=== PATIENT | female | born 1985 | race Caucasian/White ===

== ENCOUNTER 2025-09-18 23:25 | Emergency (ER) | payer SELFPAY ==
--- OUTSIDE RECORDS SUMMARY | 2025-01-10 04:30 | XMS_ITS ---
Author Organization [facility] Serv[facility] es Address [address] [place] [address] Care Team Providers Care Retail Warehouse Supervisor Name Role Phone Miguel Angel Madrigal Primary Care Provider Farfan Shea Unavailable [phone] Anny Martines Unavailable [phone] REASON FOR VISIT PROPHY SCHED FILLING Encounters Encounter Location Date Provider Diagnosis [facility] [address] [place] [address] 01/10/2025 Annyshawn Martines Acute gingivitis, plaque induced K05.00 Assessments Encounter Date Diagnosis (ICD Code) Assessment Notes Treatment Notes Treatment Clinical Notes Section Notes 01/10/2025 Acute gingivitis, plaque induced (ICD-10 - K05.00) Plan Of Treatment No Information Progress Notes * ARTURO VASQUEZOB: 7 (40 yo F)Acc No.[id number]:01/10/2025 Patient:?PEDROHOLGERZAYDA :?Anny MartinesDOB:1985???Age:39 Y???Sex: FemaleDate:01/10/2025Phone:[phone]:601 1/[address] [id number]:Miguel Angel Madrigal Subjective: * Chief Complaints: * P ROPHY SCHED FILLING Objective: * Dental Examination/Plan : * Tooth / Surface Status Description Provider Date TPPROPHYLAXIS - ANCIHON3701/10/2025 Assessment: * Assessment: 1.?Acute gingivitis, plaque induced - K05.00 (Primary)??? Billing Information: * Procedure Codes: * Electronic signature of Anny Martines on 09/19/2025 at 12:35 AM ESTSign off status: Pending * Provider: Denny Martines Date: 0 01/10/2025 Generated for Printing/Faxing/eTransmitting on:?09/19/2025 12:35 AM EST
--- OUTSIDE RECORDS SUMMARY | 2025-05-11 03:30 | XMS_ITS ---
Author Organization [facility] Servic es Address [address] [place] [address] Care Team Providers Care Jeep Driver Name Role Phone Miguel Agnel Madrigal Primary Care Provider [phone] Shea Farfan Unavailable [phone] Rachel Patino Unavailable [phone] REASON FOR VISIT DEMETRIUS from Shea Encounters Encounter Location Date Provider Diagnosis [facility] [address] [place] [address] 05/11/2025 Rachel Patino Plan Of Treatment No Information Progress Notes * ARTURO VASQUEZOB: 7 (40 yo F)Acc No.[id number]:05/11/2025 Behavioral Health Patient: ZAYDA CREWS :?Rachel PatinoDOB:1985???Age:40 Y???Sex: FemaleDate:05/11/2025Phone:[phone]:601 /2 [address] [place] [id number]:Miguel Angel Madrigal Subjective: * Chief Complaints: * T OC from Shea Billing Information: * Procedure Codes: * Electronic signature of ADALBERTO Bradley on 09/19/2025 at 12:36 AM EST Sign off status: Pending * Provider: Linn Patino Date: 0 05/11/2025 Generated for Printing/Faxing/eTransmitting on:?09/19/2025 12:36 AM EST
--- OUTSIDE RECORDS SUMMARY | 2025-05-30 11:00 | XMS_ITS ---
Author Organization [facility] [employer] es Address [address] [place] [address] Care Team Providers Care Assistant Director Name Role Phone Miguel Angel Madrigal Primary Care Provider Naheed Shea Unavailable [phone] Rachel Patino Unavailable [phone] REASON FOR VISIT Pt is a 40 year old female, DEMETRIUS from [facility], last seen August 2024 Encounters Encounter Location Date Provider Diagnosis [facility] [address] [place] [address] 05/30/2025 Rachel Patino Plan Of Treatment No Information Progress Notes * ARTURO VASQUEZOB: 7 (40 yo F)Acc No.[id number]:05/30/2025 Behavioral Health Patient: ZAYDA CREWS :?Rachel PatinoDOB:1985???Age:40 Y???Sex: FemaleDate:05/30/2025Phone:[phone]:601 1/[address]STR[place], [id number]:Miguel Angel Madrigal Subjective: * Chief Complaints: * P t is a 40 year old female, DEMETRIUS from [facility], last seen August 2024 Billing Information: * Procedure Codes: * Electronic signature of ADALBERTO Bradley on 09/19/2025 at 12:36 AM EST Sign off status: Pending * Provider: Linn Patino Date: 0 05/30/2025 Generated for Printing/Faxing/eTransmitting on:?09/19/2025 12:36 AM EST
[2025-09-18 23:39] VITALS: BP 130/83; PULSE 83; TEMP 37.1; O2SAT 99; BMI 28.9
[2025-09-19] MEDS: LIDOCAINE HCL 1% 100 MG/10 ML MDV INJ (00:15)
[2025-09-19 00:27] LABS: Hematocrit 35.5 % (36.0-48.0); Hemoglobin 11.7 g/dL (12.0-16.0); Immature Granulocytes Abs Auto 0.01 10^3/uL (0.00-0.03); Immature Granulocytes Pct Auto 0.2 % (0.0-0.5); Lymphocytes Absolute Auto 1.9 10^3/uL (1.2-3.8); Mean Corpuscular HGB Conc 33.0 g/dL (29.9-35.2); Mean Corpuscular Hemoglobin 28.5 pg (26.7-34.0); Mean Corpuscular Volume 86.6 fL (81.0-99.0); Platelet Count 165 10^3/uL (150-450); Red Blood Count 4.10 10^6/uL (4.20-5.40); White Blood Count 5.0 10^3/uL (4.0-11.0)
--- OUTSIDE RECORDS SUMMARY | 2025-09-19 00:36 | XMS_ITS | Patient Health Record ---
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 Tito Call Unavailable [phone] Pamela Elizondo Unavailable [phone] Carolina Syed Unavailable [phone] Ori Gutierrez Unavailable [phone] Anny Martines Unavailable [phone] Linda Ibanez Unavailable [phone] Rachel Patino Unavailable [phone] Gin Gonzalez Unavailable [phone] Allergies No Known Allergies Results Component Value Reference Range Notes US breast RT limited Reviewed date:10/21/2024 08:59:22 PM Interpretation: Performing Lab: Notes/Report: [facility] Main [address] [address] Ultrasound Report Signed Patient: Janine Montgomery MR#: [id number] : 1985 Acct:[id number] Age/Sex: 39 / F ADM Date: 10/21/24 Loc: [place] Room: Type: [facility] Attending Dr: JESUS Fitzgerald APRNC Ordering Provider: Carolina Ring APRN, NP-C Date of Service: 10/21/24 US/US breast RT limited: Breast lump in female Copies to: Carolina Ring APRN, NP-C CLINICAL DATA: Bilateral MAMMOGRAMS - FULL FIELD DIGITAL/TARGETED RIGHT BREAST ULTRASOUND AT 12:00 Craniocaudal and mediolateral oblique views of the both were obtained using low- dose digital technique. Comparison is made to prior studies from [facility]. Heterogeneously dense breast tissue There are no dominant masses, typically malignant calcifications or architectural distortion. Ultrasound to the side concerns o'clock demonstrates an echogenic ridge of tissue which likely corresponds to the patient's palpable abnormality. There are few scattered cysts near the site of palpable abnormality which are incidentally noted. US/US breast RT limited IMPRESSION: NO MAMMOGRAPHIC EVIDENCE OF MALIGNANCY. ROUTINE FOLLOW-UP IS RECOMMENDED IN ONE YEAR. RESULT CODE: 2 Benign Findings(s) DENSITY CODE: 3 (approximately 51-75% glandular) FOLLOW UP: 1YR The false-negative rate of mammography is approximately 10-percent. Management of a palpable abnormality must be based on clinical grounds. Impression dictated by: Victoriano Bolton M.D.10/21/2024 4:21 PM Dictation Location: [facility] Tech: Aleidaeugenia Beckford Transcribed By: FAUSTINA 10/21/24 1621 Dictated By: Victoriano Bolton MD 10/21/24 1620 Signed By: <Electronically signed by Victoriano Bolton MD in OV> 10/21/24 1621 MM diagnostic mammo BI w/CAD Reviewed date:10/21/2024 08:59:22 PM Interpretation: Performing Lab: Notes/Report: [facility] Main [place] [address] [place] [address] Mammography Report Signed Patient: Janine Montgomery MR#: [id number] : 1985 Acct:[id number] Age/Sex: 39 / F ADM Date: 10/21/24 Loc: [place] Room: Type: [facility] Attending Dr: BRYNN Fitzgerald APRN Copies to: Carolina Ring APRN, NP-C Jennifer Christine Richardson Ordering Provider: Carolina Ring APRN, NP-C Date of Service: 10/21/24 MM/MM diagnostic mammo BI w/CAD: Breast lump in female CLINICAL DATA: Palpable abnormality Bilateral MAMMOGRAMS - FULL FIELD DIGITAL/TARGETED RIGHT BREAST ULTRASOUND AT 12:00 Craniocaudal and mediolateral oblique views of the both were obtained using low- dose digital technique. Comparison is made to prior studies from [facility]. Heterogeneously dense breast tissue There are no dominant masses, typically malignant calcifications or architectural distortion. Ultrasound to the side concerns o'clock demonstrates an echogenic ridge of tissue which likely corresponds to the patient's palpable abnormality. There are few scattered cysts near the site of palpable abnormality which are incidentally noted. MM/MM diagnostic mammo BI w/CAD IMPRESSION: NO MAMMOGRAPHIC EVIDENCE OF MALIGNANCY. ROUTINE FOLLOW-UP IS RECOMMENDED IN ONE YEAR. RESULT CODE: 2 Benign Findings(s) DENSITY CODE: 3 (approximately 51-75% glandular) FOLLOW UP: 1YR The false-negative rate of mammography is approximately 10-percent. Management of a palpable abnormality must be based on clinical grounds. Impression dictated by: Victoriano Bolton M.D.10/21/2024 3:34 PM Dictation Location: [facility] Transcribed By: [facility] 10/21/24 1534 Dictated By: Victoriano Bolton MD 10/21/24 1458 Signed By: <Electronically signed by Victoriano Bolton MD in OV> 10/21/24 1534 Rapid COVID-19 Reviewed date:04/06/2025 03:36:44 PM Interpretation:negative Performing Lab: Notes/Report: negative Results negative Strep Test [facility] Reviewed date:04/06/2025 03:36:09 PM Interpretation:negative Performing Lab: Notes/Report: negativeResultnegativeStrep Test [facility] Reviewed date:11/25/2024 01:44:56 PM Interpretation:negative Performing Lab: Notes/Report: negativeResultnegativeRapid COVID-19 Reviewed date:11/15/2024 12:14:50 PM Interpretation:Neg Performing Lab: Notes/Report: NegResultsNegRapid Flu Test Reviewed date:11/15/2024 12:14:34 PM Interpretation:Flu B Performing Lab: Notes/Report: Flu BResultFlu B Reason For Referral No Information Medications Medication SIG (Take, Route, Frequency, Duration) Notes Start Date End Date Status lamoTRIgine 150 MG Tablet 1 tablet Orally Once a day; Duration: 30 days ActiveLosartan Potassium 100 MG Tablet1 tablet Orally Once a day; Duration: 30 daysActiveVenlafaxine HCl ER 150 MG Capsule Extended Release 24 Hour1 capsule daily; Duration: 7 daysActiveOndansetron HCl 8 MG Tablet 1 tablet Orally Once a day; Duration: 30 days As needed nausea 01/13/2025tiveMetoclopramide HCl 5 MG Tablet 1 tablet (can redose for effect after 30 minutes) Orally 3 times a day; Duration: 15 days As needed 03/09/2025tiveclonazePAM 0.5 MG Tablet 1 tablet Orally twice daily; Duration: 30 days As needed 5ActiveVyvanse 70 MG Capsule1 capsule in the morning Orally Once a day; Duration: 30 days03/24/2025tivetraZODone HCl 50 MG Tablet1 tablet at bedtime as needed Orally Once a day01/22/2024ctiveVitamin D3 1.25 MG (24762 UT) Capsule TAKE 1 CAPSULE BY MOUTH Orally weekly; Duration: 90 daysActiveAlbuterol Sulfate HFA 108 (90 Base) MCG/ACT Aerosol Solution1 puff as needed Inhalation every 4 hrs; Duration: 10 days11/22/2024tiveQUEtiapine Fumarate 25 MG Tablet1-2 tabs at bedtime for anxiety Orally Once a day; Duration: 30 days10/07/2024tive cloNIDine HCl 0.2 MG Tablet1 tablet Orally Once a day; Duration: 30 days 10/13/2024tive Immunizations Vaccine Route Administration Date Status Comme nts AFLURIA IM Intramuscular 08/13/2024 Administered Social History Tobacco Use: Social History Observation Description Date Details (start date - stop date) Never Smoker NA - NA Social History GeneralSocial InfoQuestionAnswerNotesTransition of Care:ER/UC/hospital since last office visit?NoSpecialist seen since last office visit?NoSubstance abuse/mental health issues of patient/familyPatient -DeniesAbility to understand healthcare/treatmentPatient:GoodSexual Hx:Had sex in the last 12 months (vaginal, oral, or anal)?Yes? withMen only? Use protection?No? Prevention Strategies discussed:CondomsHave you ever had an STD?NoSocial/Support Concerns: Patient:NoBehaviors affecting healthPoor/Risky Behaviors:Denies-Communication Barrier:Language Barrier?:NoDrug/Alcohol:Social InfoQuestionAnswerNotesAUDIT-C (Standard)Did you have a drink containing alcohol in the past year?Yes? How often did you have a drink containing alcohol in the past year?Monthly or less (1 point)? How many drinks did you have on a typical day when you were drinking in the past year?3 or 4 drinks (1 point)? How often did you have six or more drinks on one occasion in the past year?Less than monthly (1 point)Points3 InterpretationPositiveTobacco Use:Social InfoQuestionAnswerNotesTobacco Control (Standard)Tobacco use:Nonsmoker Problems Problem Type SNOMED Code ICD Code Onset Dates Problem Status W/U Status Risk Notes Problem Overweight (082200530) Overweight (E66.3) ActiveconfirmedProblemVitamin D deficiency (43769964)Vitamin D deficiency (E55.9)ActiveconfirmedProblemMorbid obesity (862375636)Morbid obesity (E66.01) ActiveconfirmedProblemHyperthyroidism (07972229)Hyperthyroidism (E05.90)Active confirmedProblemChronic pain (16277257)Other chronic pain (G89.29)Active confirmedProblemMood disorder (45304441)Mood disorder (F39)Activeconfirmed ProblemChronic fatigue syndrome (23635931)Chronic fatigue (R53.82)Active confirmedProblemAttention deficit hyperactivity disorder (137975494)ADHD (attention deficit hyperactivity disorder), combined type (F90.2)Activeconfirmed ProblemEssential hypertension (81142599)Hypertension, unspecified type (I10) ActiveconfirmedProblemBody mass index 30.00 to 34.99 (809688876307087)BMI 31.0- 31.9,adult (Z68.31)ActiveconfirmedProblemGeneralized anxiety disorder (62383218) Generalized anxiety disorder (F41.1)Activeconfirmed Vital Signs Heart Rate 82 /min 04/06/2025 Lrtffealbch04 degrees Mckyappsdl42/02/2025Respiratory Rate20 /min04/06/2025 Wxxclpej784 %04/06/2025lood pressure rbdcstxpa66 mm Hg04/06/20251584Kyiqck26 in 04/06/2025lood pressure leoamvuu461 mm Hg04/06/20257199Qwktqu021 lbs04/06/2025MI 28.16 kg/m207/11/2024 Encounters Encounter Location Date Provider Diagnosis [facility] [address] [place] [address] 10/07/2024 [facility] [place] [address]/05/2025 Shea CoxGeneralized anxiety disorder F41.1[facility] [address] [place] [address]/[facility] [address] [place] [address]/hristy CoxADHD (attention deficit hyperactivity disorder), combined type F90.2[facility] [address] [place] [address]/hristy CoxADHD (attention deficit hyperactivity disorder), combined type F90.2 and Generalized anxiety disorder F41.1[facility] [address] [place] [address] 12/27/2024aron MartinezHypertension, unspecified type [address] [facility] [address] [place] [address]/[facility] [place] [address]/Ori Gutierrez [facility] [address] [place] [address]/11/2024 Shea CoxADHD (attention deficit hyperactivity disorder), combined type F90.2 [facility] [address] [place] [address]/04/2025 Shea CoxGeneralized anxiety disorder F41.1[facility] [address] [place] [address]/aron MartinezHypertension, unspecified type H27[facility] [address] [place] [address]/hristy CoxGeneralized anxiety disorder F41.1[facility] [address] [place] [address]/5Christy CoxADHD (attention deficit hyperactivity disorder), combined type F90.2[facility] [address] [place] [address]/5Aaron Rohan Overweight E66.3[facility] [address] [place] [address]/5Christy CoxGeneralized anxiety disorder F41.1[facility] [address] [place] [address]/5Christy CoxMood disorder Y26[facility] [address] [place] [address] 5Alexa zzzMurrayBreast lump in female N63.0[facility] [place] [address]/aron Dilipuejulia B J10.1[facility] [place] [address]/5Alexa zzzMurray Bacterial conjunctivitis H10.9 ; Sore throat J02.9 and Skin rash R21[facility] [address] [facility] [place] [address]/09/2025Stxin guptaBreaultEncounter for nonprocreative screening for genetic disease carrier status Z13.71 and Encounter for nonprocreative genetic counseling Z71.83[facility] [place] [address]/aron RohanPain, joint, knee, right M25.561 ; Pain in right hip M25.551 ; Other chronic pain G89.29 and Pain in left hip M25.552[facility] [address] [place] [address]/11/2024Hannabeatriz SchoenAcute left otitis media H66.92 and Sore throat J02.9[facility] [place] [address]/aron MartinezOverweight E66.3 ; Pain, joint, knee, right M25.561 and Acute dehydration E86.0[facility] [address] [place] [address]/5Alexa zzzMurrayAcute nonintractable headache, unspecified headache type R51.9[facility] [place] [address]/5Christy CoxGeneralized anxiety disorder F41.1 and ADHD (attention deficit hyperactivity disorder), combined typ e F90.2 Assessments Encounter Date Diagnosis (ICD Code) Assessment Notes Treatment Notes Treatment Clinical Notes Section Notes 10/07/2024 Generalized anxiety disorder (IC D-10 - F41.1) Recommended treatment is: FDA approved medication for this age group include Selective Serotonin Reuptake Inhibitors (SSRI) and Selective Norepinephrine Reuptake Inhibitors (SNRI). . Selective serotonin reuptake inhibitors can cause nausea, headache, upset stomach, diarrhea, constipation, anxiety, irritability, and sexual dysfunction. . Please monitor for worsening of symptoms, especially suicidal ideations or morbid thoughts, and call office and or go to the emergency department immediately. Pt does not endorse exhibiting symptoms aligning with aliya. . The patient verbalizes understanding with all questions answered thoroughly and is in agreement with treatment plan. . Continue current treatment plan with addition of clonazepam. Patient/Guardian will call sooner if symptoms worsen. Patient understands to go to ER if needed if symptoms become severe. Crisis Intervention plan was discussed and agreed upon. Patient/Guardian will call 911 in case of emergency. Emergency contact information was provided to the patient/guardian. 10/08/2024reast lump in female (ICD-10 - N63.0)Will get imaging today, will contact patient with results and next steps. Patient verbalized understanding, in agreement with plan.11/25/2024acterial conjunctivitis (ICD-10 - H10.9)Can use warm compresses, on 20 min and then off TID, cleanse eyes with a tear free soap, avoid cross contamination. Apply gtts as prescribed. Avoid contacts until clear as well as eye makeup if worn,If no improvement, visual changes, pain, go to the nearest ER or f/u opthalmology/optometry.5Acute left otitis media (ICD-10 - H66.92)Symptoms and exam consistent with inner ear infection. Complete the antibiotic as ordered. May use Ibuprofen or Tylenol as needed for discomfort. Increase fluids and get plenty of rest. May follow upif the symptoms persist past the duration of the antibiotic. Patient verbalizes understanding. 03/24/2025DHD (attention deficit hyperactivity disorder), combined type (ICD-10 - F90.2)03/25/2025Overweight (ICD-10 - E66.3)04/06/2025Sore throat (ICD-10 - J02.9)Use Tylenol, cough drops, tea with honey/lemon and salt rinse gargles, OTC Cepacol or Chloroseptic spray can also help soothe symptoms. Rapid strep test negative in office.11/22/2024Influenza B (ICD-10 - J10.1)Pt with recent positive flu B test and evidence of bronchitis on exam. WIll treat with steroid and a lbuterol. SYmptomatic therapy otherwise discussed. Signs and symptoms that warrant return to clinicwere discussed. Signs and symptoms that would warrant going to the nearest ER or calling 911 were also discussed.10/29/2024DHD (attention deficit hyperactivity disorder), combined type (ICD-10 - F90.2) 04/11/2025Generalized anxiety disorder (ICD-10 - F41.1)12/14/2024DHD (attention deficit hyperactivity disorder), combined type (ICD-10 - F90.2)12/15/2024 Encounter for nonprocreative screening for genetic disease carrier status (ICD- 10 - Z13.71) Discussed family history with patient and she has positive family history of cancer on Maternal side of family Discussed benefits of having genetic testing performed such as knowing how to best perform future screenings due to risks and other potential risk reduction treatments that may need to be pursued based on results. MyRisk test ordered 12/15/2024Encounter for nonprocreative genetic counseling (ICD-10 - Z71.83) 12/27/2024Hypertension, unspecified type (ICD-10 - I10)01/05/2025Pain in right hip (ICD-10 - M25.551)01/05/2025Pain, joint, knee, right (ICD-10 - M25.561) Patient with chronic right knee pain that is flared up for the last couple days along with chronic bilateral hip pain. She has previously seen Ortho for the bilateral hip pain and was recommended forphysical therapy for hip injections. Dr. Gentile, Ortho, was concerned bilateral femoral acetabular impingement. We did discuss the therapy for both the hips and the knee would be a good option as strengthening these areas may help reduce her pain was immediately and long- term. We did also discuss use of a patellar tendon strap given her pain over this area. RICE therapy discussed otherwise. Will plan to follow-up after PT. 01/13/2025Mood disorder (ICD-10 - F39)02/04/2025DHD (attention deficit hyperactivity disorder), combined type (ICD-10 - F90.2)02/09/2025Generalized anxiety disorder (ICD-10 - F41.1)03/02/2025Hypertension, unspecified type (ICD- 10 - I10)03/08/2025Generalized anxiety disorder (ICD-10 - F41.1)03/09/2025 Overweight (ICD-10 - E66.3)Patient with significant vomiting and nausea related to recent semaglutide administration. We did discuss discontinuation of medication at this time. Will give Reglan for nausea and vomiting. We did d iscuss that her exam and vitals indicate that she is also dehydrated. Note given for work today. Signs and symptoms that warrant return to clinic were discussed. Signs and symptoms that would warrantgoing to the nearest ER or calling 911 were also discussed.03/09/2025Pain, joint, knee, right (ICD-10 - M25.561)Patient with repeat issue with right knee. This did seem to get better and then worsened again. We did rediscuss physical therapy and prescription was given for this today. RICE therapy discussed otherwise.10/13/2024Generalized anxiety disorder (ICD-10 - F41.1)11/15/2024ute nonintractable headache, unspecified headache type (ICD-10 - R51.9)10/07/2024DHD (attention deficit hyperactivity disorder), combined type (ICD-10 - F90.2) . FDA approved stimulant medication for this age group. Discussed/Denies adverse effects from medication including HTN, tachycardia, insomnia, irritability, headache, or decreased appetite. . All relevant and serious adverse effects were discussed. Standard precautions and potential benefits were discussed. Patient/Guardian consented to begin medication/ continue treatment plan . Patient continues to meet criteria for attention deficit hyperactivity disorder. Pt does not meet criteria for bipolar disorder, major depressive disorder, or other persistent mood disorders. Will continue to monitor the patient for presentation of new symptoms or behaviors. . Continue current treatment; tolerating meds well, compliant; call for problems; questions answered satisfactorily, agreeable to treatment plan . GOALS: . Maintain medication regimen _Improve social and interpersonal functioning _Improve attention and or hyperactivity . follow up 3 months . Crisis Intervention plan was discussed and agreed upon. Patient/Guardian will call 911 in case of emergency. Emergency contact information was provided to the patient/guardian. . [place] reviewed . 11/25/2024Sore throat (ICD-10 - J02.9)URI is likely viral in nature due to symptoms and duration. Recommend supportive care including pushing fluids, getting plenty of rest, Tylenol/NSAIDs as needed, humidifier to keep air moist. Recommended fluticasone nasal spray for runny nose and sinus pressure, dextromethorphan or honey for cough control, and guaifenesin for congestion. Testing for Strep is Negative in clinic today. Contact office if symptoms persist beyond 7-10 days, could consider atb at that time. Patient verbalized understanding.11/25/2024Skin rash (ICD-10 - R21)Possible reaction to erythromycin ointment, hold this and monitor if rash resolves. Antihistamine be fore bed tonight to help with itching and rash. Patient verbalized understanding.5Acute dehydration (ICD-10 - E86.0)01/05/2025Other chronic pain (ICD-10 - G89.29)12/14/2024Generalized anxiety disorder (ICD-10 - F41.1)01/05/2025Pain in left hip (ICD-10 - M25.552)11/22/2024OtherBody Mass Index: Care Instructions material was slppeuy1603/09/2025OtherBody Mass Index: Care Instructions material was published, Body Mass Index: Care Instructions material was printed Plan Of Treatment No Information Insurance Providers Payer Name Payer Address Payer Phone Subscriber Number Group Number Insured Name Patient Relationship to Insured Coverage Start Date Coverage End Date [employer] [place] Medicaid [address] [place] [address] [id number] PEDROTOMMIE FRANCISelf - patient is the [id number] [facility] [place] [id number], BRITANGELYSelf - patient is the [id number] [facility] [address] [place] [id number], JANINE Self - patient is the [id number] [address] [place] [id number], BRITANGELYSelf - patient is the [id number] [address] [place] [id number], BRITANGELYSelf - patient is the [id number] [employer] DQ Terminated 10/05/24[address] [place] [id number], BRITANGELYSelf - patient is the [id number] [address] [place] [phone] [id number], BRITTANYSelf - patient is the Medical (General) History Medical History History ICD Code Prediabetes ObesityAnxietyPigeon ToedDepressionGestational DiabetesMitral Valve Prolapse AnemiaCholestasis during PregnancyDepression with SAIBSSurgical History Surgery Date(Month/Year) Total Hysterectomy R/T Endometriosis /2 023 x 4 Ventral Hernia Repair with Mesh Robot Assisted/ Plication of Rectus Muscles 03/2021Wisdom Teeth ExtractionTubal Rdvfwtnq0161Vnasmcbeipexmtz History Reason Date(Month/Year) Surgery Psych3Childbirth
--- OUTSIDE RECORDS SUMMARY | 2025-09-19 00:36 | XMS_ITS | Clinical Summary ---
Author Organization [facility] Address [address], [address] [place] [address] Care Team Providers Care Clothes Wringer Name Role Phone Unavailable Primary Care Provider Unavailabl e Social History Tobacco UseTypesPacks/DayYears UsedDateSmoking Tobacco: Never Assessed CommentsUnknownSex and Gender InformationValueDate RecordedSex Assigned at Not on fileLegal ThnYibrqe92/10/2013 9:32 PM ESTGender IdentityNot on fileSexual OrientationNot on file Plan of Treatment Health MaintenanceDue DateLast DoneCommentsDepression Ekwovs2304/14/1999Varicella vaccine (1 of 2 - 13+ 2-dose series)2000HIV ksgzzr7604/14/2002Hepatitis C kqhvpm0604/14/2005DTaP/Tdap/Td vaccine (1 - Tdap)2006Hepatitis B vaccine (1 of 3 - 19+ 3-dose series)2006Pap smear2008Cervical cancer screen 2017HPV (without or with Pap)2017Flu vaccine (#1)5COVID-19 Vaccine ( season)2025HPV vaccine (No Doses Required)Completed Hepatitis A vaccineAged OutNo longer eligible based on patient's age to complete this topicHib vaccineAged OutNo longer eligible based on patient's age to complete this topicMeningococcal (ACWY) vaccineAged OutNo longer eligible based on patient's age to complete this topicMeningococcal B vaccineAged OutNo longer eligible based on patient's age to complete this topicPneumococcal 0-49 years VaccineAged OutNo longer eligible based on patient's age to complete this topic Polio vaccineAged OutNo longer eligible based on patient's age to complete [place] [address]
--- OUTSIDE RECORDS SUMMARY | 2025-09-19 00:36 | XMS_ITS | Clinical Summary ---
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 Name Role Phone Meño Lynn MD Primary Care Provider [phone] Allergies Active AllergyReactionsCriticalityNoted DateCommentsNaproxenAnaphylaxisHigh 04/10/2019 Medications MedicationSigDispense QuantityRefillsLast FilledStart DateEnd DateStatus phentermine-topiramate 3.75-23 mg capsule, ER multiphase 24 hr Take by mouth daily.Active escitalopram (LEXAPRO) 20 mg tablet Take 1 tablet (20 mg total) by mouth in the morning.Active busPIRone (BUSPAR) 30 mg tablet Take 1 tablet (30 mg total) by mouth in the morning and 1 tablet (30 mg total) before bedtime.Active dicyclomine (BENTYL) 20 mg tablet Take 1 tablet (20 mg total) by mouth every 6 (six) hours.Active Active Problems ProblemNoted DateDiagnosed DateGestational diabetes mellitus (GDM) affecting /09/2016Anemia of mother during , kolvokekf46/09/2016 Monochorionic diamniotic twin qbsikyyxc33/08/2016Cholestasis during in third yqbenjzim61/08/2016 Encounters DateTypeDepartmentCare PhpgCbltwqgietl01/19/2025Lab Requisition [facility] [address] [place] [address] Health, 360 Encounter for pre-employment examinationfrom Last 3 Months Immunizations ImmunizationAdministration DatesNext DueInfluenza, Injectable, quadrivalent (PF) 07/22/2018 Family History Medical HistoryRelationNameCommentsCOPDFatherJerry KetchamDiabetesFatherJerry KetchamBreast cancerMaternal AuntHeather RubelCancerMaternal AuntHeather Rubel CancerMaternal GrandfatherCancerMaternal GrandmotherThyroid cancerMaternal GrandmotherBone cancerMotherMichelle KetchamBreast cancerMotherMichelle Taylor HypertensionMotherMichelle KetchamRelationNameStatusCommentsFatherJerry Taylor AliveMaternal AuntHeather RubelAliveMaternal GrandfatherAliveMaternal GrandmotherAliveMotherMichelle KetchamAlive Social History Tobacco UseTypesPacks/DayYears UsedDateSmoking Tobacco: NeverSmokeless Tobacco: Never Tobacco Cessation:Counseling Given: Not Answered Alcohol UseStandard Drinks/WeekCommentsNo0 (1 standard drink = 0.6 oz pure alcohol)PHQ-2AnswerDate RecordedTotal Jtwhn363ChildcareAnswerDate KqwxzkrxQnfoothwlWqiorkf56/12/2019EmploymentAnswerDate RecordedEmploymentUnknown 03/17/2019Hunger ScreeningAnswerDate RecordedWithin the past 12 months we worried whether our food would run out before we got money to buy more.Never True07/24/2024Within the past 12 months the food we bought just didn't last and we didn't have money to get more.Never True4Purpose - LifeAnswerDate RecordedPurpose and direction in fgkrLibdkph17/11/2021CommentsNoSex and Gender InformationValueDate RecordedSex Assigned at BirthNot on fileLegal Sex Rljqrq2305/11/2015 11:58 AM EDTGender IdentityNot on fileSexual OrientationNot on file Last Filed Vital Signs Vital SignReadingTime TakenCommentsBlood Docattgj17/561 2:30 AM EDT Remyj988407/24/2024 2:30 AM HKUJuhjcjofntn71.7 ??C (98.1 ??F)07/24/2024 12:48 AM EDTRespiratory Motr6262 2:30 AM EDTOxygen Vvxyhgsguh043%07/24/2024 2:30 AM EDTInhaled Oxygen Concentration--Zhiccp70.4 kg (175 lb 1.6 oz)07/24/2024 12:48 AM MEBOjncpd122.5 cm (5' 2 )04/06/2023 4:46 PM EDTBody Mass Index32.03 04/06/2023 4:46 PM EDT Plan of Treatment Health MaintenanceDue DateLast DoneCommentsDepression Lccwjtrhe43/10/1999Tobacco Ncjddosbj93/10/1999COVID-19 Vaccine ( season)/, 02/26/2021Influenza Trrlohr79Adult BMI Suvirecqv56/19/2025 07/24/2024TaP,Tdap and Td Vaccines (2 - Td or Tdap) Medical Devices ImplantedTypeAreaManufacturerDevice IdentifierShelf Expiration DateModel / Serial / LotMesh Pp Pariten Mac [id number] - Sna - [id number] Implanted:Qty: 1 on 03/22/2021 by [facility]N/A: AbdomenMEDTRONIC [facility]11/05/2025 [id number] / NA / [id number] Procedures Procedure NamePriorityDate/TimeAssociated DiagnosisCommentsVARICELLA ZOSTER ANTIBODY, TACReglfjf05/19/2025 11:50 AM EST Encounter for pre-employment examination RUBEOLA IGG AB MEASLES KUOJWHQiwvxap51/19/2025 11:50 AM EST Encounter for pre-employment examination RUBELLA ANTIBODY, YGMNetqquo89/19/2025 11:50 AM EST Encounter for pre-employment examination MUMPS ANTIBODY, TPUZhajovg90/19/2025 11:50 AM EST Encounter for pre-employment examination HEPATITIS B SURFACE ANTIBODY IYWVSGVCBHPXIakkvuw58/19/2025 11:50 AM EST Encounter for pre-employment examination from Last 3 Months Results * Rubeola IgG Ab Measles Screen (08/24/2025 11:50 AM EST)ComponentValueRef Range Test MethodAnalysis TimePerformed AtPathologist SignatureRubeola Antibody IgG 5.7<1.0 AI08/25/2025 9:30 AM [facility] LABORATORYSpecimen (Source)Anatomical Location / LateralityCollection Method / VolumeCollection TimeReceived TimeBloodVenous blood / Synpnuc7508/24/2025 11:50 AM EST08/24/2025 9:04 PM EST Narrative [facility] - 08/25/2025 9:30 AM EST POSITIVE: Antibody (IgG) detected. Indicates previous exposure to rubeola and immunity. Authorizing ProviderResult TypeResult [id number] [place], [place] [address]DCMobility BLOOD ORDERABLESFinal ResultPerforming OrganizationAddressCity/State/ZIP CodePhone Number [facility]. [address] [place] [address], * Rubella antibody, IgG (08/24/2025 11:50 AM EST)ComponentValueRef RangeTest MethodAnalysis TimePerformed AtPathologist SignatureRUBELLA VQH63MT/mL 08/25/2025 9:30 AM [facility] LABORATORYSpecimen (Source) Anatomical Location / LateralityCollection Method / VolumeCollection Time Received TimeBloodVenous blood / Tdsnauu7608/24/2025 11:50 AM EST08/24/2025 9:04 PM EST Narrative [facility] - 08/25/2025 9:30 AM EST Interpretation < 8 NEGATIVE - considered not immune. 8 - 9 EQUIVOCAL - consider retesting with new specimen. > 9 POSITIVE - considered immune. Authorizing ProviderResult TypeResult [id number] [facility] HospitalDCMobility BLOOD ORDERABLESFinal ResultPerforming OrganizationAddressty/State/ZIP CodePhone Number [facility] [address] [place] [id number], * Hepatitis B Surface Antibody Quantitation (08/24/2025 11:50 AM EST)Component ValueRef RangeTest MethodAnalysis TimePerformed AtPathologist SignatureANTI HBS QUANT.>500.0mIU/mL08/24/2025 10:25 PM [facility] LABORATORYSpecimen (Source)Anatomical Location / LateralityCollection Method / VolumeCollection TimeReceived TimeBloodVenous blood / Rquwqyz8908/24/2025 11:50 AM EST08/24/2025 9:04 PM EST Narrative [facility] - 08/24/2025 10:25 PM EST Vaccinated: >=10 mIU/mL, Positive (Immune) Unvaccinated: <10 mIU/mL, Negative (Not Immune) Authorizing ProviderResult TypeResult [id number] [facility] BLOOD ORDERABLESFinal ResultPerforming OrganizationAddressCity/State/ZIP CodePhone Number [facility] [address] [place] [address], * Varicella zoster antibody, IgG (08/24/2025 11:50 AM EST)ComponentValueRef RangeTest MethodAnalysis TimePerformed AtPathologist SignatureVARICELLA IGG3.9 <1.0 AI08/25/2025 9:30 AM [facility] LAB[facility]ATORYSpecimen (Source)Anatomical Location / LateralityCollection Method / VolumeCollection TimeReceived TimeBloodVenous blood / Sfypund9808/24/2025 11:50 AM EST08/24/2025 9:04 PM EST Narrative [facility] - 08/25/2025 9:30 AM EST Intepretation < 0.9 Negative 0.9 - 1.0 ??Equivocal > 1.0 Positive Authorizing ProviderResult TypeResult [id number] [facility]LAB BLOOD ORDERABLESFinal ResultPerforming OrganizationAddressCity/State/ZIP CodePhone Number [facility] [address] [place] [address], * Mumps antibody, IgG (08/24/2025 11:50 AM EST)ComponentValueRef RangeTest MethodAnalysis TimePerformed AtPathologist SignatureMUMPS VIRUS IGG4.6<1.0 AI 08/25/2025 9:30 AM [facility] LABORATORYSpecimen (Source) Anatomical Location / LateralityCollection Method / VolumeCollection Time Received TimeBloodVenous blood / Xdptsas0408/24/2025 11:50 AM EST08/24/2025 9:04 PM EST Narrative [facility] - 08/25/2025 9:30 AM EST Intepretation < 0.9 Negative 0.9 - 1.0 ??Equivocal > 1.0 Positive Authorizing ProviderResult TypeResult [id number] [facility] BLOOD ORDERABLESFinal ResultPerforming OrganizationAddressCity/State/ZIP CodePhone Number [facility] [address] [place] [address], from Last 3 Months Insurance Care Teams Team MemberRelationshipSpecialtyStart DateEnd Date Meño Lynn MD PCP - GeneralFamily Medicine03/27/23
--- OUTSIDE RECORDS SUMMARY | 2025-09-19 00:36 | XMS_ITS | Clinical Summary ---
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 Take before meals. 30 tablet 03/17/2023ctive busPIRone (Buspar) 10 MG tablet Take 10 mg by mouth in the morning and 10 mg before bedtime.Active dicyclomine (Bentyl) 20 MG tablet every 8 (eight) hours.12/20/2022ctive escitalopram (Lexapro) 10 MG tablet Take 10 mg by mouth in the morning.11/17/2022ctive hydrOXYzine HCl (Atarax) 25 MG tablet Take 25 mg by mouth 3 (three) times a day as needed for anxiety.07/10/2022ctive Active Problems ProblemNoted DateDiagnosed DateGeneralized anxiety ejdiumxj62/18/2023estational diabetes mellitus (GDM) affecting ([facility])08/14/2016 Immunizations ImmunizationAdministration DatesNext DueInfluenza, injectable, quadrivalent, preservative free07/22/2018 Family History Medical HistoryRelationNameCommentsDiabetesFatherCancerMaternal Grandfather CancerMaternal GrandmotherCancerMotherHypertensionMotherRelationNameStatus CommentsFatherMaternal GrandfatherMaternal GrandmotherMother Social History Tobacco UseTypesPacks/DayYears UsedDateSmoking Tobacco: NeverSmokeless Tobacco: Never Tobacco Cessation:Counseling Given: Not Answered Alcohol UseStandard Drinks/WeekCommentsNever0 (1 standard drink = 0.6 oz pure alcohol)CommentsNoSex and Gender InformationValueDate RecordedSex Assigned at BirthNot on fileLegal UhuIspmup23/15/2023 11:47 PM EDTGender IdentityNot on fileSexual OrientationNot on file Last Filed Vital Signs Vital SignReadingTime TakenCommentsBlood Ccvhfthe362/72004/25/2023 8:31 AM EDT Gtrcl254304/25/2023 8:31 AM LEBGzlbbncgnql13.8 ??C (98.2 ??F)04/25/2023 8:31 AM EDTRespiratory Rate--Oxygen Fkwzhzbxqk29%04/25/2023 8:31 AM EDTInhaled Oxygen Concentration--Ffxyny41.7 kg (173 lb 6.4 oz)04/25/2023 8:31 AM OPTWivzjg607.5 cm (5' 2 )04/25/2023 8:31 AM EDTBody Mass Index31.72004/25/2023 8:31 AM EDT Plan of Treatment Health MaintenanceDue DateLast DoneCommentsCOVID-19 Vaccine ( season) /, 02/26/2021Influenza Vaccine (#1) Pneumococcal Vaccine: Pediatrics (0 to 5 Years) and At-Risk Patients (6 to 64 Years)Aged OutNo longer eligible based on patient's age to complete this topic Insurance Care Teams Team MemberRelationshipSpecialtyStart DateEnd Date Meño Lynn MD [address] [place] [address] PCP - GeneralFamily Medicine03/17/23 Karina Myers NP [address] [place] [address] Nurse PractitionerFamily Medicine03/17/23 Chyna Cruz NP [address] [place] [address] Nurse PractitionerPulmonary Disease03/17/23
--- NOTE | 2025-09-19 00:41 | ED.GENADUL1 ---
HPI HPI - General Adult General Chief complaint: Dental/Oral Stated complaint: MOUTH PAIN Time Seen by Provider: 09/18/25 23:33 Source: patient Mode of arrival: walk-in Limitations: no limitations History of Present Illness HPI narrative: Patient is a 40-year-old female presenting to the emergency department for evaluation of left lower molar pain. The patient states she saw her dentist 4 days ago. Because of her lack of insurance, they were unable to extract her tooth or provide any care. They prescribed her amoxicillin and discharged her. Over the last 4 days, she has been taking the amoxicillin as prescribed. However, she is having worsening pain in the left lower molar. She has been taking Tylenol Motrin for the pain. She states she took a significant amount of Tylenol by accident, and actually calculated the dose to be 90,500 mg over the last 4 days. She denies any abdominal pain, nausea, vomiting, or or any other systemic symptoms. She has some mild left-sided facial swelling but is having no difficulty breathing or swallowing. Related Data Home Medications ?Medication ?Instructions ?Recorded ?Confirmed amoxicillin 500 mg capsule mg 09/18/25 Previous Rx's ?Medication ?Instructions ?Recorded oxycodone 5 mg capsule 5 mg PO Q6H PRN pain 3 days #12 09/19/25 caps Allergies Allergy/AdvReac Type Severity Reaction Status Date / Time No Known Drug Allergies Allergy Verified 09/18/25 23:48 Review of Systems ROS Status of ROS 10 or more systems reviewed and unremarkable except as noted in history and below PFSH PFSH Social History Little interest or pleasure in doing things: not at all Feeling down, depressed, or hopeless: not at all Exam Narrative Exam Narrative: CONSTITUTIONAL: Well-appearing, answering questions and following commands appropriately SKIN: Was warm and dry. EYES: Sclerae white. EARS, NOSE, THROAT: There are dental caries in the left lower molar with tenderness to percussion. Mild left-sided mandibular swelling. No trismus. No neck swelling. Speaking with normal voice. No REFRIGERATION REPAIR SUPERVISOR. Uvula midline. No drooling. RESPIRATORY: Clear to auscultation bilaterally, no wheezes, crackles, or stridor, no use of accessory muscles CARDIOVASCULAR: Normal rate and regular rhythm. There is no S3, S4, murmur, rub. GASTROINTESTINAL: Abdomen is soft, nontender, and nondistended. No right upper quadrant tenderness. MUSCULOSKELETAL: No peripheral edema. NEUROLOGIC: Patient is awake and alert. Facies were symmetrical. Constitutional Vital Signs, click to edit/add: Last Vital Signs Temp 98.7 F 09/18/25 23:39 Pulse 83 09/18/25 23:39 Resp 16 09/18/25 23:39 BP 130/83 09/18/25 23:39 Pulse Ox 99 09/18/25 23:39 O2 Del Method Room Air 09/18/25 23:39 Course Vital Signs Vital signs: Vital Signs Temperature 98.7 F 09/18/25 23:39 Pulse Rate 83 09/18/25 23:39 Respiratory Rate 16 09/18/25 23:39 Blood Pressure 130/83 09/18/25 23:39 Pulse Oximetry 99 09/18/25 23:39 Oxygen Delivery Method Room Air 09/18/25 23:39 Temperature 98.7 F 09/18/25 23:39 Pulse Rate 83 09/18/25 23:39 Respiratory Rate 16 09/18/25 23:39 Blood Pressure 130/83 09/18/25 23:39 Pulse Oximetry 99 09/18/25 23:39 Oxygen Delivery Method Room Air 09/18/25 23:39 Medical Decision Making MDM Narrative Medical decision making narrative: Patient is a 40-year-old female presenting to the emergency department for evaluation of tooth infection/dental abscess x 1 week. Her vital signs on arrival are within normal limits. She is afebrile and hemodynamically stable. Examination as noted above. Differential diagnose includes odontogenic infection, tooth abscess, dental caries. No evidence of severe infection or airway compromise to suggest Rafi's angina or peritonsillar abscess. She still tolerating p.o. and has no systemic symptoms. I did obtain laboratory studies to rule out transaminitis related to her excessive Tylenol use. The left lower molar was anesthetized with 1% lidocaine injection. I did attempt to I&D a small area of fluctuance with an 11 blade scalpel, however was unsuccessful in obtaining any pus. She states she feels improved after the numbing medication, there were no complications related to this procedure. Laboratory studies demonstrated a mildly elevated acetaminophen level of 18.5 mcg/mL. No transaminitis. No hyperbilirubinemia. No metabolic acidosis. No other significant abnormalities on blood work. I do believe the patient is stable for discharge. They were instructed to follow up with dentistry when she has health/dental insurance in 2 weeks. She was given 1 tab of oxycodone 5 mg to take when she gets home. She was given a prescription for oxycodone 5 mg x 12 tablets. Return precautions were given including any new or worsening symptoms. Patient understands and agrees to the plan. FINAL IMPRESSION: #Acute left lower molar dental infection DISPOSITION: Discharged home CONDITION: Good Lab Data Lab results reviewed: Yes I reviewed the patient's lab results Labs: Lab Results 09/19/25 Range/Units 00:23 WBC 5.0 (4.0-11.0) 10^3/uL RBC 4.10 L (4.20-5.40) 10^6/uL Hgb 11.7 L (12.0-16.0) g/dL Hct 35.5 L (36.0-48.0) % MCV 86.6 (81.0-99.0) fL MCH 28.5 (26.7-34.0) pg MCHC 33.0 (29.9-35.2) g/dL RDW 14.1 (11.0-15.0) % Plt Count 165 (150-450) 10^3/uL MPV 11.0 (9.5-13.5) fL Neut % (Auto) 49.9 (43.0-75.0) % Lymph % (Auto) 37.3 (20.5-60.0) % [place] % (Auto) 9.8 (1.7-12.0) % Eos % (Auto) 2.2 (0.9-7.0) % Baso % (Auto) 0.6 (0.2-2.0) % Neut # (Auto) 2.5 (1.4-6.5) 10^3/uL Lymph # (Auto) 1.9 (1.2-3.8) 10^3/uL [place] # (Auto) 0.5 (0.3-0.8) 10^3/uL Eos # (Auto) 0.1 (0.0-0.7) 10^3/uL Baso # (Auto) 0.0 (0.0-0.1) 10^3/uL Abs Immat Gran (auto) 0.01 (0.00-0.03) 10^3/uL Imm/Tot Granulo (auto) 0.2 (0.0-0.5) % Sodium 141 (136-145) mmol/L Potassium 3.8 (3.5-5.1) mmol/L Chloride 106 (98-107) mmol/L Carbon Dioxide 29.1 (21.0-32.0) mmol/L Anion Gap 9.7 BUN 17.0 (7.0-18.0) mg/dL Creatinine 0.65 (0.55-1.02) mg/dL Est GFR ( Amer) >60 (>=60 mL/min/1.73m^2) Est GFR (Non-Af Amer) >60 (>=60 mL/min/1.73m^2) BUN/Creatinine Ratio 26.2 Glucose 100 (74-106) mg/dL Calcium 8.5 (8.5-10.1) mg/dL Total Bilirubin 0.2 (0.2-1.0) mg/dL AST 19 (15-37) U/L ALT 33 (14-59) U/L Alkaline Phosphatase 51 (46-116) U/L Total Protein 6.8 (6.4-8.2) g/dL Albumin 3.5 (3.4-5.0) g/dL Globulin 3.3 g/dL Albumin/Globulin Ratio 1.1 Acetaminophen 18.5 (10.0-30.0) ug/mL Discharge Plan Discharge Chief Complaint: Dental/Oral Clinical Impression: Dental abscess Patient Disposition: Home, Self-Care Time of Disposition Decision: 00:32 Condition: Good Mode of Transportation: Private Vehicle Prescriptions / Home Meds: New oxycodone 5 mg capsule 5 mg PO Q6H PRN (Reason: pain) 3 Days Qty: 12 0RF No Action amoxicillin 500 mg capsule Print Language: Spanish Instructions: Dental Abscess (ED) Referrals: Physician,Non-Staff, MD [Primary Care Provider] - 1 week Discharge Date/Time: 09/19/25 01:06
[2025-09-19 00:43] LABS: Acetaminophen 18.5 ug/mL (10.0-30.0)
[2025-09-19 00:46] LABS: Alanine Aminotransferase 33 U/L (14-59); Albumin Globulin Ratio 1.1; Albumin Level 3.5 g/dL (3.4-5.0); Alkaline Phosphatase 51 U/L (46-116); Anion Gap 9.7; Aspartate Amino Transferase 19 U/L (15-37); Blood Urea Nitrogen 17.0 mg/dL (7.0-18.0); Calcium 8.5 mg/dL (8.5-10.1); Carbon Dioxide 29.1 mmol/L (21.0-32.0); Chloride 106 mmol/L (98-107); Estimated GFR (African America >60 (>=60 mL/min/1.73m^2); Estimated GFR (Non-African Ame >60 (>=60 mL/min/1.73m^2); Globulin 3.3 g/dL; Glucose 100 mg/dL (74-106); Potassium 3.8 mmol/L (3.5-5.1); Sodium 141 mmol/L (136-145); Total Protein 6.8 g/dL (6.4-8.2)
[2025-09-19] MEDS: OXYCODONE HCL 5 MG TABLET PO (01:02)
== END 2025-09-19 01:06 | disposition home or self-care (01) ==
PROVIDERS: Emergency Provider Student in an Organized Health Care Education/Training Program
DX: K04.7 Periapical abscess without sinus (principal)
CPT/HCPCS: 36415; 41800; 80053; 80329; 85025; 99284